=== PATIENT | female | born 2000 | race Caucasian/White ===

== ENCOUNTER → 2023-12-03 10:48 | Outpatient (REF) | payer BC, SELFPAY ==
[2023-12-03 13:38] LABS: Glycohemoglobin (HgbA1c) 5.3 % (4.0-5.6)
[2023-12-04 14:11] LABS: Insulin, Random 7 uIU/mL
== END ==
LOC: REG 10:48
PROVIDERS: ATTENDING PHYSICIAN Obstetrics & Gynecology
DX: E28.2 Polycystic ovarian syndrome (principal)
CPT/HCPCS: 36415; 83036; 83525